=== PATIENT | female | born 1955 | race Caucasian/White ===

== ENCOUNTER 2025-03-18 15:51 | Inpatient (IN) | payer MEDICARE, SELFPAY ==
[2025-03-15] VITALS (8 sets, daily range): BP systolic 97–157; BP diastolic 49–75; BMI 37.9
--- NOTE | 2025-03-15 17:44 | ED.GENMED ---
History of Present Illness
<Ishan Magallanes PA-C - Last Filed: 03/16/25 13:06>
General
Chief Complaint: Bowel Problem
Time Seen by Provider: 03/15/25 17:21
History of Present Illness
History of Present Illness:
70-year-old female presents to the emergency department via EMS with a reported complaint of blood in her colostomy bag. She apparently had changed the bag prior to EMS arrival and the bag is empty on arrival. She is quite a challenging historian
and unable to give me any further history. She initially refused to provide information to triage however to me she states that there is blood in her ostomy. She has no idea of why she has an ostomy and is uncertain of how long it has been in
place. Apparently typically goes to [facility] however was brought to the ED here at the discretion of EMS according to the patient. She denies any fevers or vomiting. She reports diffuse abdominal pain at this time. She is not on
anticoagulants.
Review of Systems
<Ishan Magallanes PA-C - Last Filed: 03/16/25 13:06>
Review of Systems
Allergies reviewed?: Yes
All Other Systems: ROS reviewed and negative except as documented in HPI and ROS
Phy Exam
<Ishan Magallanes PA-C - Last Filed: 03/16/25 13:06>
Physical Exam
Physical Exam:
GEN: Well appearing, NAD, WDWN
HEENT: Oral mucosa moist, no scleral icterus
Cardiac: Regular rate and rhythm, no murmur
Lung: No respiratory distress, no tachypnea
Abdomen: Left-sided ostomy with deeply melanotic, liquid stool. Abdomen is generally tender to all 4 quadrants
MSK: No gross deformity or injuries
Skin: Good color, no pallor or jaundice, no rashes
Neuro: AO x3, moves all extremities freely
Psych: Calm, cooperative
Course
<Ishan Magallanes PA-C - Last Filed: 03/16/25 13:06>
Orders/Labs/Results
Orders:
Orders
03/15/25 Breakfast
Clear Liquid
At Your Request: Limited, Break Off Worker Required
Does patient need a safe tray?: No
03/15/25 17:43
Pantoprazole [Protonix IV] 80 mg IV NOW STA
03/15/25 17:45
Pantoprazole 80 mg/100 ml Nss [Protonix] 80 mg in 100 ml IV Q10H
03/15/25 18:05
Type+Screen Urgent
Complete Blood Count/With Diff Urgent
Comprehensive Metabolic Panel Urgent
03/15/25 19:12
CT Abd/pelvis W Iv Cont Urgent
Comment:
Reason For Exam: abd pain
03/15/25 21:54
STOOL [C difficile Antigen & Toxins] Urgent
REILLY Source: Feces/Stool
Specimen Description:
Date Specimen was Collected: 03/16/25
Time Specimen was Collected: 12:56
Stool Culture Urgent
REILLY Source: Feces/Stool
Specimen Description:
Date Specimen was Collected: 03/16/25
Time Specimen was Collected: 12:56
03/15/25 21:58
Admit/Transfer Patient As Directed
Co-Sign Provider:
Level of Care: Observation services
Assign to:: Medical/Surgical
Physician / Group: Chris
Diagnosis: Colitis, GI Bleed
03/15/25 21:59
PRN Pain Medication Management As Directed
May give lesser potent ordered pain med per pt: Yes
preference::
Protocol:: Medication orders for pain may be administered in a
manner that supports deferring to patient preference
when the pt is:
- Requesting an ordered lesser potent pain medication.
Least to most potent pain medications are defined
as: acetaminophen < NSAID < tramadol < opioids
(morphine, oxycodone, hydromorphone).
- Requesting a lesser dose of the same medication IF
ORDERED.
- Requesting a less intrusive route of administration
if both routes are prescribed by the provider (PO <
IV).
03/15/25 22:04
Code Status As Directed
Resuscitation Status: Full Code
03/15/25 22:41
Acetaminophen [Tylenol] 650 mg PO Q4HPRN PRN
Ondansetron Injectable [Zofran] 4 mg IV Q6HPRN PRN
Oxycodone [Roxicodone Oral Solution] 10 mg PO Q8HPRN PRN severe pain severe pain
03/15/25 22:41
Consult Notification Routine
Specialty to Notify: Gastroenterology
GASTROINTESTINAL CONSULT Routine
Consulting Provider: Jc Kim
Was physician already notified: No
Reason for consult: Colitis, GI Bleed
Activity As Directed
Activity Level: Out of Bed-Early Mobility
With Assistance
Hemetest Stools As Directed
Comment: Notify Physician of any positive results; May Stop if Negative x 3
I&O [Intake/ Output] As Directed
Frequency: q12h
Obtain Records As Directed
Dates of Information to be Released: Most recent
Type of Information Requested: Discharge Summary
H&P
Obtain Records from: [facility]
Pneumatic Compression Sleeves As Directed
Type: Knee high
Vital Signs As Directed
Frequency: Per unit guidelines
DX Deep Vein Thrombosis Video Routine
03/15/25 23:35
H&H Routine
Lactic Acid Stat
03/16/25 04:37
Basic Metabolic Panel IN AM
Complete Blood Count/No Diff IN AM
03/16/25 08:00
Aripiprazole [Abilify] 2 mg PO DAILY
Duloxetine Delayed Release [Cymbalta Delayed Release] 60 mg PO BID
Pantoprazole [Protonix IV] 40 mg IV Q12H
Prednisone [Deltasone] 4 mg PO DAILY
Pregabalin [Lyrica] 50 mg PO BID@0800,1700
Tolterodine Extended Release [Detrol LA] 2 mg PO DAILY
03/16/25 22:00
Pregabalin [Lyrica] 100 mg PO HS
Rosuvastatin Calcium [Crestor] 20 mg PO HS
Topiramate [Topamax] 50 mg PO HS
Abnormal Lab Results
03/15/25
18:05
MCH 31.1 H pg
(27.0-31.0)
Abs Immat Gran (auto) 0.2 H 10^3/uL
(0-0.05)
Absolute Lymphs (auto) 0.6 L 10^3/uL
(1.2-3.4)
Absolute Monos (auto) 1.0 H 10^3/uL
(0.1-0.6)
Immature Gran % 3.8 H %
(0-0.5)
Lymphocytes % 10.7 L %
(20.5-51.1)
Monocytes % 17.4 H %
(1.7-9.3)
Sodium 134 L mmol/L
(135-145)
Total Protein 5.9 L g/dl
(6.3-8.2)
Albumin 3.4 L g/dl
(3.5-5.0)
03/15/25 18:05
03/15/25 18:05
Vital Signs
Initial and Last Documented VS:
Initial Vital Signs
Temp Pulse Resp BP Pulse Ox
97.8 F 76 16 97/75 98
03/15/25 15:00 03/15/25 15:00 03/15/25 15:00 03/15/25 15:00 03/15/25 15:00
Last Documented Vital Signs
Temp Pulse Resp BP Pulse Ox
98.2 F 77 17 165/65 96
03/16/25 08:00 03/16/25 08:00 03/16/25 08:00 03/16/25 08:00 03/16/25 08:00
<Oz De Dios MD - Last Filed: 03/16/25 12:45>
Orders/Labs/Results
Orders:
Orders
03/15/25 Breakfast
Clear Liquid
At Your Request: Limited, Break Off Worker Required
Does patient need a safe tray?: No
03/15/25 17:43
Pantoprazole [Protonix IV] 80 mg IV NOW STA
03/15/25 17:45
Pantoprazole 80 mg/100 ml Nss [Protonix] 80 mg in 100 ml IV Q10H
03/15/25 18:05
Type+Screen Urgent
Complete Blood Count/With Diff Urgent
Comprehensive Metabolic Panel Urgent
03/15/25 19:12
CT Abd/pelvis W Iv Cont Urgent
Comment:
Reason For Exam: abd pain
03/15/25 21:54
STOOL [C difficile Antigen & Toxins] Urgent
REILLY Source: Feces/Stool
Specimen Description:
Date Specimen was Collected: 03/16/25
Time Specimen was Collected: 12:56
Stool Culture Urgent
REILLY Source: Feces/Stool
Specimen Description:
Date Specimen was Collected: 03/16/25
Time Specimen was Collected: 12:56
03/15/25 21:58
Admit/Transfer Patient As Directed
Co-Sign Provider:
Level of Care: Observation services
Assign to:: Medical/Surgical
Physician / Group: Chris
Diagnosis: Colitis, GI Bleed
03/15/25 21:59
PRN Pain Medication Management As Directed
May give lesser potent ordered pain med per pt: Yes
preference::
Protocol:: Medication orders for pain may be administered in a
manner that supports deferring to patient preference
when the pt is:
- Requesting an ordered lesser potent pain medication.
Least to most potent pain medications are defined
as: acetaminophen < NSAID < tramadol < opioids
(morphine, oxycodone, hydromorphone).
- Requesting a lesser dose of the same medication IF
ORDERED.
- Requesting a less intrusive route of administration
if both routes are prescribed by the provider (PO <
IV).
03/15/25 22:04
Code Status As Directed
Resuscitation Status: Full Code
03/15/25 22:41
Acetaminophen [Tylenol] 650 mg PO Q4HPRN PRN
Ondansetron Injectable [Zofran] 4 mg IV Q6HPRN PRN
Oxycodone [Roxicodone Oral Solution] 10 mg PO Q8HPRN PRN severe pain severe pain
03/15/25 22:41
Consult Notification Routine
Specialty to Notify: Gastroenterology
GASTROINTESTINAL CONSULT Routine
Consulting Provider: Jc Kim
Was physician already notified: No
Reason for consult: Colitis, GI Bleed
Activity As Directed
Activity Level: Out of Bed-Early Mobility
With Assistance
Hemetest Stools As Directed
Comment: Notify Physician of any positive results; May Stop if Negative x 3
I&O [Intake/ Output] As Directed
Frequency: q12h
Obtain Records As Directed
Dates of Information to be Released: Most recent
Type of Information Requested: Discharge Summary
H&P
Obtain Records from: [facility]
Pneumatic Compression Sleeves As Directed
Type: Knee high
Vital Signs As Directed
Frequency: Per unit guidelines
DX Deep Vein Thrombosis Video Routine
03/15/25 23:35
H&H Routine
Lactic Acid Stat
03/16/25 04:37
Basic Metabolic Panel IN AM
Complete Blood Count/No Diff IN AM
03/16/25 08:00
Aripiprazole [Abilify] 2 mg PO DAILY
Duloxetine Delayed Release [Cymbalta Delayed Release] 60 mg PO BID
Pantoprazole [Protonix IV] 40 mg IV Q12H
Prednisone [Deltasone] 4 mg PO DAILY
Pregabalin [Lyrica] 50 mg PO BID@0800,1700
Tolterodine Extended Release [Detrol LA] 2 mg PO DAILY
03/16/25 22:00
Pregabalin [Lyrica] 100 mg PO HS
Rosuvastatin Calcium [Crestor] 20 mg PO HS
Topiramate [Topamax] 50 mg PO HS
Abnormal Lab Results
03/15/25
18:05
MCH 31.1 H pg
(27.0-31.0)
Abs Immat Gran (auto) 0.2 H 10^3/uL
(0-0.05)
Absolute Lymphs (auto) 0.6 L 10^3/uL
(1.2-3.4)
Absolute Monos (auto) 1.0 H 10^3/uL
(0.1-0.6)
Immature Gran % 3.8 H %
(0-0.5)
Lymphocytes % 10.7 L %
(20.5-51.1)
Monocytes % 17.4 H %
(1.7-9.3)
Sodium 134 L mmol/L
(135-145)
Total Protein 5.9 L g/dl
(6.3-8.2)
Albumin 3.4 L g/dl
(3.5-5.0)
03/15/25 18:05
03/15/25 18:05
Vital Signs
Initial and Last Documented VS:
Initial Vital Signs
Temp Pulse Resp BP Pulse Ox
97.8 F 76 16 97/75 98
03/15/25 15:00 03/15/25 15:00 03/15/25 15:00 03/15/25 15:00 03/15/25 15:00
Last Documented Vital Signs
Temp Pulse Resp BP Pulse Ox
98.2 F 77 17 165/65 96
03/16/25 08:00 03/16/25 08:00 03/16/25 08:00 03/16/25 08:00 03/16/25 08:00
<Ishan Magallanes PA-C - Last Filed: 03/16/25 13:06>
MDM/Problems Addressed
MDM/Problems Addressed:
Patient is a challenging historian and I am unable to discern any further prior health information. I did attempt to obtain records from [facility] however this request was denied as it was after hours. She has melanotic stool and will be
admitted on a PPI infusion for consideration of GI intervention as needed. She does not take NSAIDs and denies anticoagulant or alcohol use thus etiology is unclear.
<Ishan Magallanes PA-C - Last Filed: 03/16/25 13:06>
*Pulse Oximetry
SaO2: 93
Oxygen Mode of Delivery: Room air
Patient hypoxic: no
*Critical Care Note
Total Time (30-74mins, 75-104mins- exclusive of procedures): Not Applicable
<Oz De Dios MD - Last Filed: 03/16/25 12:45>
Update Note
Update Note:
UPDATE
I was able to speak to the patient's daughter whose name is Marcie; unfortunately patient's daughter is deaf; her contact information is as follows:
Video phone number (will call daughter through a data base design analyst automatically): [phone]
Cell phone number (text messages only, she cannot answer this phone): [phone]
Daughter says that mother came in today with abdominal pain and black stool. She says that her mother has odd affect and some waxing and waning mentation at baseline but does not have a clear diagnosis. She says that her mother sees Dr. Arreola
Suly as primary care physician. She confirms that mother had recent visit for cellulitis in the hand/leg and has been on Keflex. She says that her mother has a history of colostomy secondary to a chemotherapy complication�apparently patient had
cerebral vasculitis requiring treatment and had some sort of an issue with the colon requiring resection as a complication of this treatment. Daughter says that this was actually closer to 10 years ago rather than 19 which was the patient's report.
She also reports that her mother has a history of hypertension and chronic essentially whole body pain requiring regular oxycodone.
I was able to speak to her primary care physician directly Dr. Tubbs ([phone]) who was extremely helpful and provided the following background medical history:
PMH:
Cerebral vasculitis on chronic immunosuppressants
History of bilateral occipital CVA
History of complicated diverticulitis with abscess requiring partial colectomy with colostomy; this was later reversed but had dehiscence and ultimately she required permanent ostomy
She has a history of chronic abdominal pain related to her prior surgeries
History of spinal stenosis with chronic back pain
Current medications:
Abilify 2 mg daily
Potassium chloride 10 mEq daily
Duloxetine 60 mg twice daily
Prednisone 4 mg daily
Rosuvastatin 20 mg daily
Metoclopramide 10 mg TID as needed
Pantoprazole 40 mg daily
Ferrous sulfate
Lyrica 50 mg in AM, 100 mg nightly
Oxycodone 10 mg TID as needed
Allergies:
Bactrim
Morphine
Physicians:
Rheumatology: Дмитрий Mcghee DO
Neurology: Torey Perez MD
Pain management: Sami Bautista MD
Neurosurgery: Lit Juarez MD (set for upcoming consult, has not seen)
She apparently had blood work in October which showed the following pertinent values:
Hemoglobin 14.2
Creatinine 0.92
Rest of basic blood work reportedly normal at the time
Social history:
Patient apparently lives at home alone currently she apparently lost her last year
She has 2 children who unfortunately both are deaf congenitally
ED Attending Note
<Ishan Magallanes PA-C - Last Filed: 03/16/25 13:06>
-
Portions of this chart may have been created with voice recognition software.� Occasional wrong word or��sound alike� substitutions may have occurred due to the inherent limitations of voice recognition software.
<Oz De Dios MD - Last Filed: 03/16/25 12:45>
ED Attending Note
Patient seen and examined by attending physician: Yes
ED Attending Note:
I have seen and evaluated the patient with a [id number] encounter. I have spoken to the advance practicer provider and involved in the medical history, the physical exam, medical decision making.
Evaluation and management service: agree unless noted differently below.
Results interpretation: agree unless noted differently below.
Focused HPI: 70-year-old female who is a very poor historian with an unclear chronic medical history that she had very least has an ostomy bag�appears to be a colostomy based on location�but she says she has had for 19 years although she cannot tell
me why she has this ('I cannot remember'). It sounds like she typically gets her care at [facility], no records here available. She says she is here in the emergency room because she noticed blood in her ostomy bag (she says dark black) and has
been having abdominal pain. It sounds like symptoms started today and have been constant all day. She notes that she has been on Keflex for the past 2 days after recent diagnosis of cellulitis in the right leg in urgent care and subsequent
follow-up with her primary doctor on Thursday. Aside from abdominal pain and dark stool in her ostomy she denies any vomiting, denies any fever. She denies other acute complaints.
Physical exam: Awake and alert. Soft blood pressure initially in triage improved by my assessment. Heart rate 70s to 80s. No hypoxia or tachypnea, afebrile here. She has a soft abdomen diffusely tender to palpation, palpable ventral wall hernia.
She has ostomy in the left lower abdomen with bag in place, black stool noted in the bag consistent with melanotic stool. Heme testing positive. Surrounding the ostomy bag patient has a large amount of tape plastered across her abdomen she says
in an attempt to curb leaking. She does have a minor wound on the anterior right jang with some slight erythema surrounding.
Medical Decision Makin-year-old female presents with abdominal pain and black stool that started today in the setting of recent Keflex for apparent right leg cellulitis. She is a very poor historian and tells me that she forgets anything about
her medical history. She believes that she has a colostomy that was done 19 years ago but she cannot remember where or why this was done. It sounds like she has been to [facility] in the past. Record request placed but no records available
thus far. Regarding her black stool�certainly stool in the ostomy appears melanotic and it was heme positive. She fortunately has a stable hemoglobin here but would treat with Keflex and monitor bleeding and trend hemoglobin. Regarding her
abdominal pain although she does not appear to be uncomfortable we will check CT abdomen as she is a very stoic and poor historian and has significant tenderness to the touch. Will need to remove all of the extra tape from the abdomen and perform
ostomy care. Plan for admission pending initial ER treatment.
Discharge Plan
Departure
Patient Disposition: Admit
Date of Disposition: 03/15/25
Time of Disposition: 21:31
Admit to doctor: Chris
Presentation/result/management discussed w/ accepting MD/DO: Hospitalist
Discharge Problem:
Melena, Abdominal pain
Interventions
Interventions:
*General Assessment Last Done: 03/15/25 16:47
*Neglect/Abuse Screening Last Done: 03/15/25 15:00
*ED COVID-19 Vaccine History Last Done: 03/15/25 22:49
*ED Influenza Vaccine History Last Done: 03/15/25 16:46
[facility] Fall Risk Assessment Tool Last Done: 03/15/25 14:57
*Risk Screen - Suicide (C-SSRS) Last Done: 03/15/25 15:00
BP-Czzrzd-Cxmndlysws Assessment Last Done: 03/15/25 16:57
[2025-03-15 18:21] LABS: Hematocrit 44.4 % (37.0-47.0); Hemoglobin 15.0 g/dL (12.0-16.0); Mean Corp Hgb Conc. 33.8 g/dL (33.0-37.0); Mean Corpuscular Volume 91.9 fL (81.0-99.0); Nucleated Red Blood Cells % 0 %; Platelet Count 158 10^3/uL (130-400); Red Cell Dist. Width 13.6 % (11.5-14.5)
[2025-03-15 18:33] LABS: ALT (SGPT) 18 U/L (0-35); AST (SGOT) 22 U/L (14-36); Albumin 3.4 g/dl (3.5-5.0); Alkaline Phosphatase 71 U/L (38-126); Blood Urea Nitrogen 11 mg/dl (7-17); Calcium 8.7 mg/dl (8.4-10.2); Carbon Dioxide 24 mmol/L (22-30); Chloride 103 mmol/L (98-107); Estimated Creatinine Clearance 63 ml/min; Glucose 92 mg/dl (70-99); Potassium 4.0 mmol/L (3.5-5.1); Sodium 134 mmol/L (135-145); Total Protein 5.9 g/dl (6.3-8.2); eGFR > 60.00
[2025-03-15] MEDS: PROTONIX IV 80 MG IV (19:27)
[2025-03-15] MEDS: PROTONIX 100 IV (19:34)
--- NOTE | 2025-03-15 22:10 | HPS.HSE ---
Addendum entered and electronically signed by Sohan Perez DO 03/15/25 23:01:
Patient seen and examined independently. Agree with findings and plan as set forth by Hina Newsome PA-C.
Patient is a 70y F with PMH significant for cerebral vasculitis on chronic prednisone, bilateral occipital CVAs and complicated diverticulitis s/p resection and colostomy who presents to ED complaining of left-sided abdominal pain and dark stool.
Patient states that her stool is usually liquid - but is more dark x several days. She denies any fevers / chills, N/V, urinary complaints, etc. Poor PO intake / appetite.
Patient typically receives her care from [facility] and has no prior visits here.
Patient was recently started on cephalexin for R hand cellulitis.
Ass:
Colitis
Colostomy Status
Cerebral Vasculitis
Chronic Pain Syndrome
Chronic Opioid Dependence
ASCVD / History of Cerebellar Strokes
Plan:
Admit for further evaluation and treatment.
CT scan in the ED suggests colitis near the ostomy site.
Check serum lactate.
Check stool studies.
Observe off of abx for now pending fever or additional culture results, etc.
? heme positive stool in the ED. GI consulted for further evaluation.
Continue usual home med regimen including chronic prednisone.
Obtain prior records from [facility] for additional history.
Original Note:
Family Physician
-
Family Physician: INTERVIEWE UNKNOWN - PT NOT
Chief Complaint
-
Abdominal Pain and Black Stools
History of Present Illness
Patient is a 70 y/o female past medical history of cerebral vasculitis on chronic prednisone, bilateral occipital CVA, complicated diverticulitis with abscess requiring diverting colostomy, chronic abdominal pain and spinal stenosis who presents
with abdominal pain. Patient reports her stools from the ostomy are chronically on the more liquids side, but since yesterday output form the ostomy is more black in color. Patient is also complaining about increased left sided abdominal pain. She
denies any fevers, sweats or chills. She denies any nausea or vomiting. She was recently started on cephalexin for right hand cellulitis.
Medical History
Past Medical History
Past Medical History: Reports None
Additional Past Medical History:
Cerebral Vasculitis
Bilateral Occipital CVA
Complicated Diverticulitis with Diverting Colostomy
Chronic Abdominal Pain
Spinal Stenosis
Hyperlipidemia
Past Surgical History: Reports Other
Additional Past Surgical History:
Partial Colectomy with colostomy, initially reversed then developed dehiscence requiring permanent colostomy
Social History
Tobacco: Other (Former cigarette smoker, currently vaping)
Family History
Family History: Not pertinent
Allergies / Home Medications
Allergies reflects when Allergies were last updated in [facility].
Home Medications with original date entered in [facility]
Allergy/Medication List:
Allergies
Allergy/AdvReac Type Severity Reaction Status Date / Time
Sulfa (Sulfonamide Allergy Rash Verified 03/15/25 14:59
Antibiotics)
Home Medications
aripiprazole 2 mg tablet (Abilify) 2 mg PO DAILY Mental Health/Anxiety 03/15/25
cephalexin 500 mg capsule 500 mg PO Q8H 03/15/25
duloxetine 60 mg capsule,delayed release 60 mg PO BID 03/15/25
oxycodone 5 mg/5 mL oral solution 10 mg PO Q8HPRN PRN severe pains 03/15/25
pantoprazole 40 mg tablet,delayed release (Protonix) 40 mg PO DAILY Gastrointestinal Issue 03/15/25
prednisone 1 mg tablet 4 mg PO DAILY Anti-Inflammatory 03/15/25
pregabalin 50 mg capsule (Lyrica) 50 mg PO BID@0800,1700 Anti-Inflammatory 03/15/25
pregabalin 50 mg capsule (Lyrica) 100 mg PO HS Anti-Inflammatory 03/15/25
rosuvastatin 20 mg tablet (Crestor) 20 mg PO HS High Cholesterol 03/15/25
solifenacin 5 mg tablet (Vesicare) 5 mg PO DAILY Urinary Issue 03/15/25
topiramate 50 mg tablet 50 mg PO HS 03/15/25
Review of Systems
-
History Source: Patient
A 12 point ROS was completed and negative except as noted: Yes
Constitutional: Denies Fever or Chills
Respiratory: Denies Cough or Trouble Breathing
Abdomen/GI: Reports See HPI
Physical Exam
Vital Signs
Vital Signs
Temp Pulse Resp BP Pulse Ox
98.6 F 84 16 131/75 93
03/15/25 16:46 03/15/25 21:45 03/15/25 21:45 03/15/25 21:00 03/15/25 17:44
Physical Exam
General: No Apparent Distress and Obese
HEENT: Anicteric and Moist mucous membranes
Respiratory: Clear and Non Labored Respirations
Cardiac: S1/S2 and Regular Rhythm
GI: Soft, Tender (Left sided without rebound or guarding), Ostomy (dark brown /almost black liquid present in ostomy bag) and Other (Significant scarring across the abdomen from prior surgeries)
Rectal: Deferred by Provider
Musculoskeletal: No Clubbing and No Cyanosis
Skin: Warm and Dry
Neuro: Other (Opens eyes on occasions, Answers simple questions but unable to particupate in full neurologic evaluation)
Psych: Calm
Laboratory Results
-
03/15/25 18:05
03/15/25 18:05
Laboratory Results
Total Bilirubin 0.5 mg/dl (0.2-1.3) 03/15/25 18:05
AST 22 U/L (14-36) 03/15/25 18:05
ALT 18 U/L (0-35) 03/15/25 18:05
Alkaline Phosphatase 71 U/L (38-126) 03/15/25 18:05
Abd/Pelvis CT:
Extensive postoperative changes within the abdomen with a colostomy in the lower midline abdomen. The residual distal colon appears to demonstrate mild wall thickening and mucosal hyperenhancement suggestive of colitis. There is no evidence of
obstruction.
Data Reviewed
-
CT Scan: Report Reviewed by me
Lab Data: Labs Reviewed by me
Old Records: Requested
Impression/Plan
-
Colitis, unclear if infectious vs ischemic
-Check lactic acid
-Check stool cultures, and stool for C diff as patient was recently on antibiotics
-Hold on antibiotics for now
-Allow clear liquids
Black-Colored Stool, possible GI Bleed
-Consult GI
-Continue Protonix IV BID
-Trend serial Hgb
Cerebral Vasculitis
-Continue prednisone
Chronic Pain Syndrome with Opioid Dependence due to chronic abdominal pain following multiple surgeries and spinal stenosis
-Continue duloxetine and pregabalin
-Continue oxycodone PRN
Hyperlipidemia
-Continue Crestor
DVT proph: SCDs
Code Status: Full Code
[2025-03-15 23:44] LABS: Hematocrit 46.2 % (37.0-47.0); Hemoglobin 15.0 g/dL (12.0-16.0)
[2025-03-16] MEDS: PROTONIX 100 IV (03:51)
[2025-03-16 05:23] LABS: Blood Urea Nitrogen 10 mg/dl (7-17); Calcium 8.7 mg/dl (8.4-10.2); Carbon Dioxide 22 mmol/L (22-30); Chloride 105 mmol/L (98-107); Estimated Creatinine Clearance 71 ml/min; Glucose 86 mg/dl (70-99); Potassium 3.4 mmol/L (3.5-5.1); Sodium 136 mmol/L (135-145); eGFR > 60.00
[2025-03-16 05:37] LABS: Hematocrit 46.5 % (37.0-47.0); Hemoglobin 15.6 g/dL (12.0-16.0); Mean Corp Hgb Conc. 33.5 g/dL (33.0-37.0); Mean Corpuscular Volume 92.8 fL (81.0-99.0); Platelet Count 157 10^3/uL (130-400); Red Cell Dist. Width 13.7 % (11.5-14.5)
[2025-03-16 06:54] VITALS: BP 142/73
[2025-03-16 08:00] VITALS: BP 165/65
--- NOTE | 2025-03-16 08:10 | CON.GI ---
Addendum entered and electronically signed by Jc Kim MD 03/16/25 15:28:
I saw and evaluated the patient. I reviewed the resident�s note and agree with findings and plan as documented in the resident�s note.
70yo female hx cerebral vasculitis, CVA, complicated diverticulitis/abscess treated initallly with diverting colostomy followed by reversal comlicated by dehiscence requiring permanent colostomy years ago. Presents with abd pain and black stools
via ostomy. Sx began last several days with abd pain around colostomy site. Stools have been looser and yesterday noted to be black. Recently treated for cellulitis with cephalexin. On chronic steroids for her vasculitis. CT shows mild wall
thickening and mucosal hyperenhancement in distal residual colon. C diff Ag positive, toxin negative. Influenza positive
REC:
Start PO vanco to treat C diff Ag positive even though toxin negative since she presents with loose stools, pain and colitis on CT
Monitor Hgb. Has been stable in 15 range. Melena could be due to colitis, but she is at risk for PUD given chronic steroids.
If signs of UGIB consider EGD
Protonix BID
Original Note:
Consultation
-
Date/Time Consultation Requested: 03/15/2025, 22:21 PM
Date/Time Consultation Performed: 03/16/2025, 8:14 AM.
Requesting Provider: Hina Newsome PA-C
Performing Provider: Kita Basilio MD for Jc Kim MD
Reason for Consultation: colitis, GI bleed
Medical History
Chief Complaint / HPI
Chief Complaint: Abdominal pain and GI bleed.
History of Present Illness:
70-year-old female with PMHx significant for bilateral occipital CVA, cerebral vasculitis on chronic prednisone, complicated diverticulitis with abscess requiring diverting colostomy about 8 years ago, s/p colostomy reversal resulting in wound
dehiscence requiring permanent colostomy, and chronic abdominal pain along with lumbar spinal stenosis and hyperlipidemia presents to the ER for evaluation of acute on chronic abdominal pain and black-colored stools. Patient states her abdominal
pain started yesterday in the noon, it is in the center of her abdomen around her colostomy, jabbing pain about 8/10 in intensity and nonradiating with some associated nausea but no emesis. Over the last 2 months she has been noticing that her
colostomy output has been loose, but since yesterday she started having black-colored watery stools ([place] stool scale 7). She is not on blood thinners at home baseline, takes pantoprazole for prophylaxis with prednisone, and did not miss a dose.
She denies fever, chills, diarrhea, constipation, reflux, bloating, belching, and dizziness.
She reports to be using NSAIDs [id number], and recently finished cephalexin about 10 days prior to this hospitalization for right arm cellulitis that has resolved.
Patient does not recall the name of her judicial law clerk, colorectal surgeon, and PCP(last name of her PCP is Clive, but she is unsure of the first name or with the practice is located).
Past Medical History
Past Medical History: Other (Bilateral occipital CVA, complicated diverticulitis with diverting colostomy, cerebral vasculitis, chronic abdominal pain, spinal stenosis, hyperlipidemia.)
Past Surgical History: Other (Partial colectomy with colostomy, reversal, recurrent dehiscence requiring permanent colostomy.)
Social History
Tobacco: Other (Patient is a former smoker, 36-lyor-hetb smoking history, currently vaping e- JUUL)
Alcohol: None
Drug: None
Personal: Single
Living: Alone
Family History
Family History: Reviewed & Not Pertinent
Allergies / Home Medications
Allergy/AdvReac Type Severity Reaction Status Date / Time
Sulfa (Sulfonamide Allergy Rash Verified 03/15/25 14:59
Antibiotics)
�Medication �Instructions �Recorded
aripiprazole 2 mg tablet (Abilify) 2 mg PO DAILY Mental Health/Anxiety 03/15/25
cephalexin 500 mg capsule 500 mg PO Q8H 03/15/25
duloxetine 60 mg capsule,delayed 60 mg PO BID 03/15/25
release
oxycodone 5 mg/5 mL oral solution 10 mg PO Q8HPRN PRN severe pains 03/15/25
pantoprazole 40 mg tablet,delayed 40 mg PO DAILY Gastrointestinal 03/15/25
release (Protonix) Issue
prednisone 1 mg tablet 4 mg PO DAILY Anti-Inflammatory 03/15/25
pregabalin 50 mg capsule (Lyrica) 50 mg PO BID@0800,1700 03/15/25
Anti-Inflammatory
pregabalin 50 mg capsule (Lyrica) 100 mg PO HS Anti-Inflammatory 03/15/25
rosuvastatin 20 mg tablet (Crestor) 20 mg PO HS High Cholesterol 03/15/25
solifenacin 5 mg tablet (Vesicare) 5 mg PO DAILY Urinary Issue 03/15/25
topiramate 50 mg tablet 50 mg PO HS 03/15/25
Review of Systems
-
History Source: Patient
Constitutional: Denies Fever, Fatigue, Night Sweats or Chills
EENT: Reports No Symptoms
Respiratory: Reports No Symptoms
Cardiac: Reports No Symptoms
Abdomen/GI: Reports Abdominal Pain, Diarrhea and Black Stools; Denies Constipated, Bloody Stools, Anorexia, Pain or Other
: Reports No Symptoms
Musculoskeletal: Reports No Symptoms
Skin: Reports No Symptoms
Neurological: Reports No Symptoms
Endocrine: Reports No Symptoms
Hematologic/Lymphatic: Reports No Symptoms
Vital Signs
Temp Pulse Resp BP Pulse Ox
99.2 F 83 22 157/73 93
03/16/25 03:15 03/15/25 23:53 03/15/25 23:53 03/15/25 23:53 03/15/25 17:44
Physical Exam
Exam
General: Other (Obese body habitus, Sedated and somnolent)
Respiratory: Clear; Negative Wheezes, Rales or Rhonchi
Cardiac: S1/S2 and Regular Rhythm; Negative Murmur, Rub or JVD
GI: Soft, Non Tender, Normal Bowel Sounds and Other (Pannus interfering with physical exam, on inspection the skin surfaces erythematous with few ecchymosis, well-healed nondraining scars from previous surgery, colostomy output-black, [place] stool
scale 7.)
Rectal: Brown
Musculoskeletal: No Clubbing, No Cyanosis and No Edema
Neuro: Sedated and Nonfocal/Grossly Intact
Psych: Calm
Results
WBC 5.0 10^3/uL (4.8-10.8) 03/16/25 04:37
Hgb 15.6 g/dL (12.0-16.0) 03/16/25 04:37
Hct 46.5 % (37.0-47.0) 03/16/25 04:37
MCV 92.8 fL (81.0-99.0) 03/16/25 04:37
Plt Count 157 10^3/uL (130-400) 03/16/25 04:37
Absolute Neuts (auto) 3.7 10^3/uL (1.4-6.5) 03/15/25 18:05
Sodium 136 mmol/L (135-145) 03/16/25 04:37
Potassium 3.4 mmol/L (3.5-5.1) L 03/16/25 04:37
Chloride 105 mmol/L (98-107) 03/16/25 04:37
Carbon Dioxide 22 mmol/L (22-30) 03/16/25 04:37
BUN 10 mg/dl (7-17) 03/16/25 04:37
Creatinine 0.8 mg/dL (0.6-1.0) 03/16/25 04:37
Calcium 8.7 mg/dl (8.4-10.2) 03/16/25 04:37
Total Bilirubin 0.5 mg/dl (0.2-1.3) 03/15/25 18:05
AST 22 U/L (14-36) 12/17/25 18:05
ALT 18 U/L (0-35) 03/15/25 18:05
Alkaline Phosphatase 71 U/L (38-126) 03/15/25 18:05
Diagnostic Image Results:
IMPRESSION:
# Extensive postoperative changes within the abdomen with a colostomy in the lower midline abdomen. The residual distal colon appears to demonstrate mild wall thickening and mucosal hyperenhancement suggestive of colitis. # There is no evidence of
obstruction.
# Postoperative changes in the anterior abdominal wall with a hernia involving the right lateral abdominal wall containing nonobstructed bowel and stomach.
# Age-indeterminate mild anterior compression deformity of the L4 vertebral body. If there is clinical suspicion for an acute fracture evaluation with dedicated MRI may be considered.
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
# 4.6 mm nonobstructing stone in the interpole of the left kidney.
Prior GI Procedures:
No records, patient does not recall physician's name or does not have emergency contact.
EGD:
Colonoscopy:
Assessment / Plan
-
Assessment-
70-year-old female with PMHx significant for cerebral vasculitis, bilateral occipital CVA, chronic prednisone, complicated diverticulitis with abscess and colostomy, wound dehiscence resulting in permanent colostomy presents to the ER for evaluation
of abdominal pain and melanotic stools. Had CT abdomen is evidence that for colitis. GI is consulted for management of colitis and evaluation of the GI bleed.
Problem list-
# Colitis
# GI bleed
# Complicated diverticulitis with diverting colostomy
# History of wound dehiscence
# Permanent colostomy 8 years ago.
# History of obesity
# hyperlipidemia
# chronic steroid use
Plan -
Colitis - will obtain Stool cultures, and will follow up on the c.diff studies.
Continue clear liquid diet.
Zofran as needed for nausea.
stable Hb, and no elevation in BUN, will hold on upper GI endoscopy for now.
-
-
Thank you for consultation and allowing me to participate in the patient's care. Please call the loan operations manager GI physician during the after hours with any questions or concerns.
[2025-03-16] MEDS: CYMBALTA DELAYED RELEASE 60 MG PO ×2 (09:24→21:26)
[2025-03-16] MEDS: DELTASONE 4 MG PO (09:24)
[2025-03-16] MEDS: DETROL LA 2 MG PO (09:24)
[2025-03-16] MEDS: LYRICA 50 MG PO ×2 (09:24→16:21)
[2025-03-16] MEDS: ABILIFY 2 MG PO (09:39)
[2025-03-16] MEDS: KCL 270 MEQ IV (10:16)
--- NOTE | 2025-03-16 10:28 | W.PN.HOSP.TC ---
Today's Communication/Plan
-
see A/P
Assessment / Plan
Assessment / Plan
HPI: 70 y/o female past medical history of cerebral vasculitis on chronic prednisone, bilateral occipital CVA, complicated diverticulitis with abscess requiring diverting colostomy, chronic abdominal pain and spinal stenosis; who presented with
abdominal pain and dark stool.
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
Patient also complained about increased left sided abdominal pain. She was recently started on cephalexin for right hand cellulitis.
CT AP:
Extensive postoperative changes within the abdomen with a colostomy in the lower midline abdomen. The residual distal colon appears to demonstrate mild wall thickening and mucosal hyperenhancement suggestive of colitis. There is no evidence of
obstruction.
Postoperative changes in the anterior abdominal wall with a hernia involving the right lateral abdominal wall containing non-obstructed bowel and stomach.
Age-indeterminate mild anterior compression deformity of the L4 vertebral body. If there is clinical suspicion for an acute fracture evaluation with dedicated MRI may be considered.
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
4.6 mm nonobstructing stone in the interpole of the left kidney.
A/P:
# Colitis, unclear infectious vs ischemic
# Chronic colostomy
Follow stool cultures, Norovirus, C diff as patient was recently on antibiotics
Hold on antibiotics for now
Allow clear liquids, ADAT
# Black-Colored Stool, possible GI Bleed
Consulted GI
Continue Protonix IV BID
Trend serial Hgb
# Cerebral Vasculitis
Continue prednisone
# Chronic Pain Syndrome with Opioid Dependence due to chronic abdominal pain following multiple surgeries and spinal stenosis
Continue duloxetine and pregabalin
Continue oxycodone PRN
# Hyperlipidemia
Continue Crestor
DVT proph: SCDs
Code Status: Full Code
DW RN
total time 51 min
Anticipated Discharge: > 48 hours
Subjective/Interval History
-
Date of Service: March 16, 2025
Objective Data
-
Labs:
Laboratory Results
03/15/25 03/16/25
23:35 04:37
WBC 5.0
Hgb 15.0 15.6
Hct 46.2 46.5
Plt Count 157
Sodium 136
Potassium 3.4 L
Chloride 105
Carbon Dioxide 22
BUN 10
Creatinine 0.8
Glucose 86
Calcium 8.7
Vital Signs:
Vital Signs
Temp Pulse Resp BP Pulse Ox
36.8 C 77 17 165/65 96
03/16/25 08:00 03/16/25 08:00 03/16/25 08:00 03/16/25 08:00 03/16/25 08:00
Review of Systems
-
History Source: Patient
All other systems: Reviewed and negative
Physical Exam
-
General: Well Developed, Well Nourished, No Apparent Distress, Comfortable, Conversant and Obese; Negative Respiratory Distress
HEENT: Normocephalic, Atraumatic, Nose Appears Normal and Ears Appear Normal; Negative Oxygen
Respiratory: Clear to Auscultation and Non Labored Respirations; Negative Accessory Resp Muscle Use
Cardiac: Regular Rhythm and S1/S2
GI: Soft, Nontender, Nondistended and Ostomy (with dark watery outpt )
Skin: Warm and Dry
Neuro: Awake and Alert
Psych: Calm
Data Reviewed
-
CT Scan: Report Reviewed by me
Labs: Labs Reviewed by me
[2025-03-16] MEDS: NSS (PRESERVATIVE FREE) IV (10:44)
[2025-03-16] MEDS: PROTONIX IV IV (10:44)
[2025-03-16] MEDS: ROXICODONE ORAL SOLUTION 10 MG PO ×3 (11:06→21:47)
--- NOTE | 2025-03-16 11:11 | PTCARENOTE ---
Pt requested IV K be stopped as she could not tolerate the infusion, reports she can tolerate med PO. MD WELCH made aware via T.T.
[2025-03-16] MEDS: KCL 40 MEQ PO (11:57)
[2025-03-16] MEDS: TESSALON PERLES 100 MG PO (12:18)
[2025-03-16 13:29] LABS: COVID-19 Antigen Negative (Negative)
--- NOTE | 2025-03-16 14:40 | PTCARENOTE ---
Spoke with Infection Prevention. If patient's norovirus comes back negative, does not need to be on enhanced precautions. However, if emptying/managing colostomy, highly suggest wearing contact gown.
[2025-03-16 14:41] VITALS: BP 112/47
[2025-03-16 15:24] VITALS: BP 139/59
--- NOTE | 2025-03-16 15:25 | PTCARENOTE ---
Received patient from ED. Patient able to transfer from stretcher to bed. Assessment completed, documented in shift assessment. Oriented to unit/call webb system.
--- NOTE | 2025-03-16 15:35 | PTCARENOTE ---
Will maintain enhanced precautions as Dr. Kim is treating with PO Vanco (per Infection Prevention)
[2025-03-16] MEDS: FIRVANQ 125 MG PO ×2 (17:31→23:06)
[2025-03-16] MEDS: NSS (PRESERVATIVE FREE) 10 ML IV (21:23)
[2025-03-16] MEDS: DESENEX/MITRAZOL/ZEASORB 1 APPLIC TOPICAL (21:23)
[2025-03-16] MEDS: PROTONIX IV 40 MG IV (21:24)
[2025-03-16] MEDS: TOPAMAX 50 MG PO (21:25)
[2025-03-16] MEDS: CRESTOR 20 MG PO (21:26)
[2025-03-16] MEDS: LYRICA 100 MG PO (21:26)
[2025-03-16 23:07] VITALS: BP 125/62
[2025-03-17] MEDS: ROXICODONE ORAL SOLUTION 10 MG PO ×4 (03:40→21:56)
--- NOTE | 2025-03-17 05:52 | W.PN.GI.CBS2 ---
Assessment / Plan
-
Assessment-
70-year-old female with PMHx significant for cerebral vasculitis, bilateral occipital CVA, chronic prednisone, complicated diverticulitis with abscess and colostomy, wound dehiscence resulting in permanent colostomy presents to the ER for evaluation
of abdominal pain and melanotic stools. Had CT abdomen is evidence that for colitis. GI is consulted for management of colitis and evaluation of the GI bleed.
Problem list-
# Colitis
# GI bleed
# Complicated diverticulitis with diverting colostomy
# History of wound dehiscence
# Permanent colostomy 8 years ago.
# History of obesity
# hyperlipidemia
# chronic steroid use
Plan -
Colitis - will obtain Stool cultures, and will follow up on the c.diff studies.
Continue clear liquid diet.
Zofran as needed for nausea.
stable Hb, and no elevation in BUN, will hold on upper GI endoscopy for now.
Subjective
Subjective
Date of Service: March 17, 2025
- Remains afebrile
Objective
Data Reviewed
Laboratory Data:
Laboratory Results
Total Bilirubin 0.5 mg/dl (0.2-1.3) 03/15/25 18:05
AST 22 U/L (14-36) 03/15/25 18:05
ALT 18 U/L (0-35) 03/15/25 18:05
Alkaline Phosphatase 71 U/L (38-126) 03/15/25 18:05
Vital Signs and I&O:
Vital Signs
Temp Pulse Resp BP Pulse Ox
98.5 F 84 18 125/62 95
03/16/25 23:07 03/16/25 23:07 03/16/25 23:07 03/16/25 23:07 03/17/25 00:10
I&O
03/15/25 03/16/25 03/17/25
06:59 06:59 06:59
Intake Total 430 / 430
Output Total 1250 / 1250
Balance -820 / -820
[2025-03-17] MEDS: FIRVANQ 125 MG PO ×4 (06:20→23:11)
[2025-03-17 07:19] VITALS: BP 156/68
[2025-03-17] MEDS: DETROL LA 2 MG PO (08:35)
[2025-03-17] MEDS: NSS (PRESERVATIVE FREE) 10 ML IV ×2 (08:35→21:03)
[2025-03-17] MEDS: ABILIFY 2 MG PO (08:35)
[2025-03-17] MEDS: CYMBALTA DELAYED RELEASE 60 MG PO ×2 (08:35→21:02)
[2025-03-17] MEDS: LYRICA 50 MG PO ×2 (08:35→17:22)
[2025-03-17] MEDS: DESENEX/MITRAZOL/ZEASORB 1 APPLIC TOPICAL ×2 (08:36→21:02)
[2025-03-17] MEDS: PROTONIX IV 40 MG IV ×2 (08:36→21:03)
[2025-03-17] MEDS: DELTASONE 4 MG PO (08:40)
[2025-03-17 08:44] LABS: Hematocrit 44.6 % (37.0-47.0); Hemoglobin 15.1 g/dL (12.0-16.0); Mean Corp Hgb Conc. 33.9 g/dL (33.0-37.0); Mean Corpuscular Volume 93.1 fL (81.0-99.0); Platelet Count 151 10^3/uL (130-400); Red Cell Dist. Width 13.7 % (11.5-14.5)
--- NOTE | 2025-03-17 09:23 | WOUNDNOTE ---
ABDOMEN (with photo flash)
[2025-03-17 09:25] LABS: Blood Urea Nitrogen 11 mg/dl (7-17); Calcium 8.3 mg/dl (8.4-10.2); Carbon Dioxide 20 mmol/L (22-30); Chloride 106 mmol/L (98-107); Estimated Creatinine Clearance 71 ml/min; Glucose 83 mg/dl (70-99); Magnesium 1.9 mg/dl (1.6-2.3); Potassium 3.5 mmol/L (3.5-5.1); Sodium 136 mmol/L (135-145); eGFR > 60.00
--- NOTE | 2025-03-17 09:27 | WOUNDNOTE ---
R HIP/ABDOMINAL FOLD
--- NOTE | 2025-03-17 10:10 | WOUNDNOTE ---
[facility] RN note: Patient seen around 929. Patient admitted with colitis, GIB. Patient lives alone.
See H&P for complete history.
PMH: cerebral vasculitis (prednisone), CVA's, colostomy for diverticulitis many years ago, recent hand cellulitis, chronic pain, opioid dependence, spinal stenosis, obesity.
Wound Location and type/assessment: Patient admitted with: Discolored dull red skin around ostomy suspect from yeasty and moisture. Stoma with granulomas that can bleed during cleaning patient stated. Patient states bleeding stops with pressure. No
active bleeding currently. Abdominal/groin yeasty rash along with MASD. Feet/toes with red rash-like skin suspect fungal rash. Skin on heels red/dry suspect from fungal rash. R perianal skin with small cluster of pustules suspect herpetic rash. No
drainage noted. L elbow dry scabbed abrasion.
Appetite: on clear liquid diet currently.
Pressure redistribution devices in place: [employer] Air bed. Patient cant turn self in bed.
Plan: Colostomy appliance changed using Center wafer # [id number], Hans seal and Roxi pouch #[id number] after applying miconazole powder and no sting barrier wipe to skin around stoma. Extra ostomy supply left in room. Patient stated her daughter
plans to bring in her ostomy supplies. Patient does her own ostomy care at home. Miconazole powder applied to R abdominal fold and tucked non woven gauze pad R abdominal skin fold. Patient pulled up in bed with help from PEDRO Tomlin. Heels off bed
with pillow.
Updated Dr. Medel re: R perianal small pustular rash; defer to hospitalist if an antiviral indicated. Dr. Medel approved local skin care including Nizoral cream to feet/toes. t/c SPD and ordered a bariatric air chair cushion. PEDRO Tomlin gave bariatric
cushion to patient along with samples of Center 4 inch 2 piece pouch if patient wants to try with next appliance change. Nursing can assist patient with any future routine pouch changes.
Updated care plan, will sign off. Call with concerns.
Note to case management requested for discharge: VN if goes home.
--- NOTE | 2025-03-17 11:34 | CM ---
CM reviewed chart, patient seen bedside.
Patient Flu +
Patient resides at [facility]- reports exactly one year.
Patient ambulatory with a RW- reports she gets therapy from Rony HERNANDEZ, agreeable to referral to [facility] for VN/ home health aide, aware they are not daily visits, reports she cannot private pay for daily caregivers- placed in [employer].
PCP Dr. Maxwell Tubbs, [facility], confirms prescription coverage.
[facility] form verbally reviewed, provided with copy, placed in chart.
CM will continue to follow for all d.c needs.
Plan; home with Rony HERNANDEZ, [facility] VN
--- NOTE | 2025-03-17 12:30 | W.PN.HOSP.TC ---
Today's Communication/Plan
-
see A/P
Assessment / Plan
Assessment / Plan
HPI: 70 y/o female past medical history of cerebral vasculitis on chronic prednisone, bilateral occipital CVA, complicated diverticulitis with abscess requiring diverting colostomy, chronic abdominal pain and spinal stenosis; who presented with
abdominal pain and dark stool.
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
Patient also complained about increased left sided abdominal pain. She was recently started on cephalexin for right hand cellulitis.
CT AP:
Extensive postoperative changes within the abdomen with a colostomy in the lower midline abdomen. The residual distal colon appears to demonstrate mild wall thickening and mucosal hyperenhancement suggestive of colitis. There is no evidence of
obstruction.
Postoperative changes in the anterior abdominal wall with a hernia involving the right lateral abdominal wall containing non-obstructed bowel and stomach.
Age-indeterminate mild anterior compression deformity of the L4 vertebral body. If there is clinical suspicion for an acute fracture evaluation with dedicated MRI may be considered.
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
4.6 mm nonobstructing stone in the interpole of the left kidney.
A/P:
# GI symptoms with colitis noted on imaging,
# Chronic colostomy
Norovirus negative,
C. difficile antigen positive, toxin negative (noted patient was recently on antibiotics)
Follow stool cultures
Started PO vanco
Colostomy outpt appears to be decreasing, cont to monitor
Advance clear liquid diet to regular
Continue Protonix IV BID for now
Appreciate GI input
PT eval
# Resp symptoms with mild cough and congestion 2/2 flu
Start Tamiflu x5 days
# Cerebral Vasculitis
Continue prednisone
# Chronic Pain Syndrome with Opioid Dependence due to chronic abdominal pain following multiple surgeries and spinal stenosis
Continue duloxetine and pregabalin
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
# Hyperlipidemia
Continue Crestor
DVT proph: SCDs
Code Status: Full Code
DW RN
updated daughter on the phone (appears daughter is deaf and she has an bilingual interpreter translating/signing for her)
total time 51 min
Anticipated Discharge: Within 24 hours
Subjective/Interval History
-
Date of Service: March 17, 2025
Objective Data
-
Labs:
Laboratory Results
03/17/25
08:11
WBC 5.5
Hgb 15.1
Hct 44.6
Plt Count 151
Sodium 136
Potassium 3.5
Chloride 106
Carbon Dioxide 20 L
BUN 11
Creatinine 0.8
Glucose 83
Calcium 8.3 L
Vital Signs:
Vital Signs
Temp Pulse Resp BP Pulse Ox
37.2 C 85 16 156/68 95
03/17/25 07:19 03/17/25 07:19 03/17/25 07:19 03/17/25 07:19 03/17/25 07:19
I&O
03/16/25 03/17/25 03/18/25
06:59 06:59 06:59
Intake Total 430 / 430
Output Total 1250 / 1250
Balance -820 / -820
[2025-03-17] MEDS: TAMIFLU 75 MG PO ×2 (13:03→21:03)
[2025-03-17] MEDS: KCL 40 MEQ PO (13:04)
--- NOTE | 2025-03-17 14:21 | PTCARENOTE ---
pt tearful, overwhelmed with the care that she needs. reported her daughter called her and said she could possibly be d/c'd tomorrow, pt overwhelmed with this concept. This nurse reached out to attending, daughter had apparently asked attending for
psych consult as well. N/o entered. pt denies SI.
--- NOTE | 2025-03-17 14:45 | W.PN.GI.CBS2 ---
Today's Communication / Plan
-
Continue oral vancomycin, discontinue IV pantoprazole and switch back to oral pantoprazole. Agree with regular diet
GI signing off, recommend outpatient follow-up.
Assessment / Plan
-
Assessment-
70-year-old female with PMHx significant for cerebral vasculitis, bilateral occipital CVA, chronic prednisone, complicated diverticulitis with abscess and colostomy, wound dehiscence resulting in permanent colostomy presents to the ER for evaluation
of abdominal pain and melanotic stools. Had CT abdomen is evidence that for colitis. GI is consulted for management of colitis and evaluation of the GI bleed.
Problem list-
# Colitis
# GI bleed
# Complicated diverticulitis with diverting colostomy
# History of wound dehiscence
# Permanent colostomy 8 years ago.
# History of obesity
# hyperlipidemia
# chronic steroid use
Plan -
continue oral vancomycin for c.diff antigen positive stools.
Hb has been stable, melena subsided. stop pantoprazole IV BID.
agree with regular diet.
Recommend outpatient follow up, call GI with any questions, GI signing off.
Subjective
Subjective
Date of Service: March 17, 2025
Patient reports her abdominal pain to be back at baseline, chronic, and intermittent headaches. She is extremely tearful, states she is depressed and she would be better off . She denied any active suicidal ideation or active plan for
execution.
Objective
Data Reviewed
Laboratory Data:
Laboratory Results
03/17/25 08:11
03/17/25 08:11
Laboratory Results
Magnesium 1.9 mg/dl (1.6-2.3) 03/17/25 08:11
Total Bilirubin 0.5 mg/dl (0.2-1.3) 03/15/25 18:05
AST 22 U/L (14-36) 03/15/25 18:05
ALT 18 U/L (0-35) 03/15/25 18:05
Alkaline Phosphatase 71 U/L (38-126) 03/15/25 18:05
Vital Signs and I&O:
Vital Signs
Temp Pulse Resp BP Pulse Ox
99.0 F 85 16 156/68 95
03/17/25 07:19 03/17/25 07:19 03/17/25 07:19 03/17/25 07:19 03/17/25 07:19
I&O
03/16/25 03/17/25 03/18/25
06:59 06:59 06:59
Intake Total 430 / 430
Output Total 1250 / 1250
Balance -820 / -820
Physical Exam
Physical Exam
HEENT: Anicteric
Cardiology: Normal Sinus Rhythm, S1 and S2
Pulmonary: Clear, Wheezes, Rales and Rhonchi
GI: Soft, Non Distended, Non Tender, Normal Bowel Sounds and Other (Pannus interfering with physical exam, on inspection the skin surfaces erythematous with few ecchymosis, well-healed nondraining scars from previous surgery, colostomy output-
brown.)
Extremities: No Edema
[2025-03-17 15:00] VITALS: BP 138/55
--- NOTE | 2025-03-17 17:13 | CON.MD ---
Consultation - Medical
-
patient seen chart reviewed. discussed with nursing. consult done today mar 17 2025 patient is a 70 year old woman with seroius medical illness who comes to w c.o l abd pain and black stools. she has a permanent colostomy secondary to
complications of diverticulosis. she was found to have c diff infection. she said physically she is better today. she has hx of depression for which she is prescribed abilify 2 mg q day cymbalta 60 mg bid. she also takes topamax and lyrica but
says these are prescribed for pain. see med hx below. next week is the four year anniv of her h's and she began to sob. she has two d whom she describes as selfish and not very supportive. she lives in assisted living and is slowly making
some friends 'they are all older than me' and she mentions how many friends she has lost to . she has some thoughts of dying herself...would she be better off but has not made a suicide attempt and would not. sleep not great given pain.
appetite fair but dec w acute illness. nothing to suggest psychosis or bipolar. she can enjoy some things...eg grandkids but does not see them enough
past psych hx see above recent rx for depression by pcp. no hx psych hosp.
medical hx see above patient w cerebral vasculitis, cva bilaterally which has affected vision. sprinal stenosis w bhronic pain abd wall hernia myelolipoma adrenal gland r kidney stone hld gerd bp 138/55 afeb
family hx non contributory
substance abuse denied
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 enjoys
[employer]. has a few friends in assisted living including a gentleman caller
mse alert ox3 cooperative mood is depressed affect congruent no si aver intell insight judgment okay no psychosis speech and thought process goal oriented
dx unspecified depression complicated bereavement chronic pain
recommendations patient is quite depressed and needs a lot of support. changing her meds today would not really provide any relief in the near future. would suggest consideration might be given to adding wellbutrin as an out patient. i do think
supportive psychotherapy could help. gave her the number of [facility] and also she could call her insurance company [employer] for recommendations. would check tsh b12 folate if not already done. 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
psych will look in on her on the weekend to offer support.
[2025-03-17] MEDS: NIZORAL 2% CREAM 1 APPLIC TOPICAL (21:02)
[2025-03-17] MEDS: TOPAMAX 50 MG PO (21:57)
[2025-03-17] MEDS: CRESTOR 20 MG PO (21:57)
[2025-03-17] MEDS: LYRICA 100 MG PO (21:58)
[2025-03-17 22:45] VITALS: BP 136/59
[2025-03-18] MEDS: FIRVANQ 125 MG PO ×4 (05:17→23:49)
[2025-03-18] MEDS: ROXICODONE ORAL SOLUTION 10 MG PO ×4 (05:17→22:24)
[2025-03-18 07:00] VITALS: BP 133/52
[2025-03-18 07:15] LABS: Hematocrit 43.9 % (37.0-47.0); Hemoglobin 14.6 g/dL (12.0-16.0); Mean Corp Hgb Conc. 33.3 g/dL (33.0-37.0); Mean Corpuscular Volume 94.6 fL (81.0-99.0); Platelet Count 160 10^3/uL (130-400); Red Cell Dist. Width 13.7 % (11.5-14.5)
--- NOTE | 2025-03-18 07:42 | W.PN.HOSP.TC ---
Today's Communication/Plan
-
Continue treating for C. diff colitis and Influenza
Patient still quite symptomatic
Assessment / Plan
Assessment / Plan
Physical Exam
General: Well Developed, Well Nourished
HEENT: Normocephalic, Atraumatic, Nose Appears Normal and Ears Appear Normal
Respiratory: Clear to Auscultation Bilaterally
Cardiac: Regular Rhythm and S1/S2
GI: Soft, Nontender, Nondistended and Ostomy
Skin: Warm and Dry
Neuro: Awake and Alert
Psych: Calm
Assessment/Plan
HPI: 70 y/o female with past medical history of cerebral vasculitis on chronic prednisone, bilateral occipital CVA, complicated diverticulitis with abscess requiring diverting colostomy, chronic abdominal pain and spinal stenosis; who presented with
abdominal pain and dark stool. Patient reported that her stools from the ostomy are chronically on the more liquids side, but since the day prior to arrival, the output form the ostomy is more black in color.
Patient also complained about increased left sided abdominal pain. She was recently started on cephalexin for right hand cellulitis.
CT AP:
Extensive postoperative changes within the abdomen with a colostomy in the lower midline abdomen. The residual distal colon appears to demonstrate mild wall thickening and mucosal hyperenhancement suggestive of colitis. There is no evidence of
obstruction.
Postoperative changes in the anterior abdominal wall with a hernia involving the right lateral abdominal wall containing non-obstructed bowel and stomach.
Age-indeterminate mild anterior compression deformity of the L4 vertebral body. If there is clinical suspicion for an acute fracture evaluation with dedicated MRI may be considered.
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
4.6 mm nonobstructing stone in the interpole of the left kidney.
# GI symptoms with colitis noted on imaging with associated abdominal pain
# Chronic colostomy
Norovirus negative
C. difficile antigen positive, toxin negative (noted patient was recently on antibiotics)
Follow stool cultures/studies: Norovirus negative, Salmonella/Shigella, Campylobacter were all negative
Continue P.O. Vancomycin -- treat for an empiric 14-day course as still suspect C Diff colitis given her presentation/recent antibiotics (although C Diff Ag +, toxin negative)
Colostomy output appears to be decreasing, continue to monitor
Advance clear liquid diet to regular
Stop PPI as no concern for gastrointestinal bleeding and PPI would increase patient's risk for recurrent C. Diff in the future.
Appreciate GI input -- no plans for EGD or colonoscopy at this time
Consider eventual colonoscopy as outpatient and advise close outpatient f/u in our office with Dr. Kim.
Physical Therapy evaluation
Low-fiber, low-residue diet
# Resp symptoms with mild cough and congestion 2/2 flu
Continue Tamiflu x5 days
# Cerebral Vasculitis
Continue prednisone
# Chronic Pain Syndrome with Opioid Dependence due to chronic abdominal pain following multiple surgeries and spinal stenosis
Continue duloxetine and pregabalin
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
# Hyperlipidemia
Continue Crestor
#Unspecified depression and complicated bereavement
-Appreciate psychiatry: patient is quite depressed and needs a lot of support; changing patient's medications right now would not really provide any relief in the near future
-Consideration for adding Wellbutrin as an outpatient
-Outpatient supportive psychotherapy
-Check TSH, Vitamin B12 and Folate levels
DVT proph: SCDs. Lovenox.
Code Status: Full Code
toy trains and accessories salesperson is daughter Marcie, phone number [phone].
Anticipated Discharge: 24 - 48 hours
Subjective/Interval History
-
Date of Service: March 18, 2025
Patient was seen and examined. She reported feeling generalized weakness and subjective fever.
Objective Data
-
Labs:
Laboratory Results
03/18/25
06:09
WBC 4.7 L
Hgb 14.6
Hct 43.9
Plt Count 160
Sodium Pending
Potassium Pending
Chloride Pending
Carbon Dioxide Pending
BUN Pending
Creatinine Pending
Glucose Pending
Calcium Pending
Vital Signs:
Vital Signs
Temp Pulse Resp BP Pulse Ox
98.3 F 91 16 136/59 94
03/17/25 22:45 03/17/25 22:45 03/17/25 22:45 03/17/25 22:45 03/17/25 23:25
I&O
03/17/25 03/18/25 03/19/25
06:59 06:59 06:59
Intake Total 430 / 430 240 / 240
Output Total 1250 / 1250 75 / 75
Balance -820 / -820 165 / 165
[2025-03-18 07:44] LABS: Blood Urea Nitrogen 13 mg/dl (7-17); Calcium 9.0 mg/dl (8.4-10.2); Carbon Dioxide 26 mmol/L (22-30); Chloride 108 mmol/L (98-107); Estimated Creatinine Clearance 63 ml/min; Glucose 109 mg/dl (70-99); Potassium 4.0 mmol/L (3.5-5.1); Sodium 138 mmol/L (135-145); eGFR > 60.00
[2025-03-18 09:36] VITALS: BP 147/68
[2025-03-18] MEDS: ABILIFY 2 MG PO (09:54)
[2025-03-18] MEDS: DELTASONE 4 MG PO (09:54)
[2025-03-18] MEDS: DETROL LA 2 MG PO (09:54)
[2025-03-18] MEDS: LYRICA 50 MG PO ×2 (09:55→18:13)
[2025-03-18] MEDS: PROTONIX IV 40 MG IV (09:55)
[2025-03-18] MEDS: TAMIFLU 75 MG PO ×2 (09:55→21:39)
[2025-03-18] MEDS: NSS (PRESERVATIVE FREE) 10 ML IV (09:55)
[2025-03-18] MEDS: CYMBALTA DELAYED RELEASE 60 MG PO ×2 (09:55→21:39)
[2025-03-18] MEDS: DESENEX/MITRAZOL/ZEASORB 1 APPLIC TOPICAL ×2 (10:00→21:39)
[2025-03-18] MEDS: NIZORAL 2% CREAM 1 APPLIC TOPICAL ×2 (10:01→21:39)
--- NOTE | 2025-03-18 10:19 | CM ---
Addendum entered by Alicja Urbina 03/19/25 09:13:
Spoke w/ patient's Daughter/POA, Marcie this morning via phone. Marcie is Deaf; and communicates via phone w/ chiropractic neurologist.
SNF options near [facility] identified; daughter's preferences are: #[facility]. [facility]; #2. [facility]; #3 [facility].
Addendum entered by Alicja Urbina 03/19/25 08:44:
Submitted SNF referrals via [facility] to facilities near [facility] zip [facility] per daughter's request
Addendum entered by Alicja Urbina 03/18/25 11:57:
Received a call from daughter, Marcie. She is agreeable to SNF; preference is a facility in [facility] zip code near her.
Attending notified to call daughterMarcie, to provide clinical update
Original Note:
PT recommends SNF; patient told therapistthat she prefers to go home w/ home PT.
Patient admitted [facility] on 03/15 @ 22:37; Attending notified
Spoke w/ patient's daughter, Radha, via phone; explained Observation status; also explained that mother does not qualify for Medicare Waiver Program to be admitted to SNF
[2025-03-18] MEDS: TYLENOL 650 MG PO (12:05)
[2025-03-18 15:00] VITALS: BP 116/64
[2025-03-18] MEDS: TOPAMAX 50 MG PO (21:34)
[2025-03-18] MEDS: CRESTOR 20 MG PO (21:39)
[2025-03-18] MEDS: LYRICA 100 MG PO (21:39)
[2025-03-18 23:11] VITALS: BP 141/64
[2025-03-19] MEDS: ROXICODONE ORAL SOLUTION 10 MG PO ×4 (02:35→17:57)
[2025-03-19] MEDS: FIRVANQ 125 MG PO ×3 (05:43→17:54)
[2025-03-19 06:55] LABS: Hematocrit 45.3 % (37.0-47.0); Hemoglobin 14.7 g/dL (12.0-16.0); Mean Corp Hgb Conc. 32.5 g/dL (33.0-37.0); Mean Corpuscular Volume 94.6 fL (81.0-99.0); Platelet Count 175 10^3/uL (130-400); Red Cell Dist. Width 13.5 % (11.5-14.5)
[2025-03-19 07:38] LABS: Blood Urea Nitrogen 13 mg/dl (7-17); Calcium 8.8 mg/dl (8.4-10.2); Carbon Dioxide 22 mmol/L (22-30); Chloride 110 mmol/L (98-107); Estimated Creatinine Clearance 63 ml/min; Glucose 132 mg/dl (70-99); Potassium 3.7 mmol/L (3.5-5.1); Sodium 139 mmol/L (135-145); eGFR > 60.00
[2025-03-19] MEDS: DELTASONE 4 MG PO (07:47)
[2025-03-19] MEDS: LYRICA 50 MG PO ×2 (07:47→17:53)
[2025-03-19] MEDS: CYMBALTA DELAYED RELEASE 60 MG PO ×2 (07:47→20:49)
[2025-03-19] MEDS: DETROL LA 2 MG PO (07:47)
[2025-03-19] MEDS: TAMIFLU 75 MG PO ×2 (07:47→20:48)
[2025-03-19] MEDS: ABILIFY 2 MG PO (07:47)
[2025-03-19] MEDS: NIZORAL 2% CREAM 1 APPLIC TOPICAL ×2 (07:48→20:50)
[2025-03-19] MEDS: DESENEX/MITRAZOL/ZEASORB 1 APPLIC TOPICAL ×2 (07:49→20:50)
[2025-03-19 08:13] VITALS: BP 125/67
[2025-03-19 08:47] LABS: Folate 10.9 ng/ml (2.76-20); Vitamin B12 > 1000 pg/ml (239-931)
--- NOTE | 2025-03-19 12:58 | W.PN.UPDATE ---
Update Note
Progress Note Update
Patient seen by me on 03/19/2025 from 12:05pm-12:25pm.
Psychiatry follow up for depression. Chart reviewed. Patient reports struggling due to limited support, chronic pain and health issues and upcoming 4 year anniversary of her 's passing. She denies active SI. She smiles when talking about her
4yo granddaughter and says she is a motivating factor for her.
MSE- good eye contact. tearful at times. goal directed. mood is depressed. affect is congruent. denies active SI. Denies HI/AVH. Fair insight/judgement. fully oriented.
A/P-unspecified depression, complicated bereavement and chronic pain. Patient remains depressed and in need of support. She states she would like individual therapy once home. Dr. Koch had provided her with number for [facility] and
was also informed to call her insurance company [employer] for outpatient treatment recommendations. Continue current psychiatric medications and consider adjustments as an outpatient.
[2025-03-19 15:00] VITALS: BP 130/56
--- NOTE | 2025-03-19 18:56 | W.PN.HOSP.TC ---
Today's Communication/Plan
-
SNF placement
IV fluids given volume loss
Monitor on telemetry
Assessment / Plan
Assessment / Plan
Physical Exam
General: Well Developed, Well Nourished
HEENT: Normocephalic, Atraumatic, Nose Appears Normal and Ears Appear Normal
Respiratory: Clear to Auscultation Bilaterally
Cardiac: Regular Rhythm and S1/S2
GI: Soft, Nontender, Nondistended and Ostomy
Skin: Warm and Dry
Neuro: Awake and Alert
Psych: Calm
Assessment/Plan
HPI: 70 y/o female with past medical history of cerebral vasculitis on chronic prednisone, bilateral occipital CVA, complicated diverticulitis with abscess requiring diverting colostomy, chronic abdominal pain and spinal stenosis; who presented with
abdominal pain and dark stool. Patient reported that her stools from the ostomy are chronically on the more liquids side, but since the day prior to arrival, the output form the ostomy is more black in color.
Patient also complained about increased left sided abdominal pain. She was recently started on cephalexin for right hand cellulitis.
CT AP:
Extensive postoperative changes within the abdomen with a colostomy in the lower midline abdomen. The residual distal colon appears to demonstrate mild wall thickening and mucosal hyperenhancement suggestive of colitis. There is no evidence of
obstruction.
Postoperative changes in the anterior abdominal wall with a hernia involving the right lateral abdominal wall containing non-obstructed bowel and stomach.
Age-indeterminate mild anterior compression deformity of the L4 vertebral body. If there is clinical suspicion for an acute fracture evaluation with dedicated MRI may be considered.
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
4.6 mm nonobstructing stone in the interpole of the left kidney.
# GI symptoms with colitis noted on imaging with associated abdominal pain
# Chronic colostomy
Norovirus negative
C. difficile antigen positive, toxin negative (noted patient was recently on antibiotics)
Follow stool cultures/studies: Norovirus negative, Salmonella/Shigella, Campylobacter were all negative
Continue P.O. Vancomycin -- treat for an empiric 14-day course as still suspect C Diff colitis given her presentation/recent antibiotics (although C Diff Ag +, toxin negative)
Monitor colostomy output
Advance clear liquid diet to low residue
Stop PPI as no concern for gastrointestinal bleeding and PPI would increase patient's risk for recurrent C. Diff in the future.
Appreciate GI input -- no plans for EGD or colonoscopy at this time
Consider eventual colonoscopy as outpatient and advise close outpatient f/u in our office with Dr. Kim.
Physical Therapy evaluation
Low-fiber, low-residue diet
IV Fluids LR 1 L, for 1 bag total to be given 03/19-03/20 given patient's mild lightheadedness, likely from volume loss
# Resp symptoms with mild cough and congestion 2/2 flu
Continue Tamiflu x5 days
# Cerebral Vasculitis
Continue prednisone
# Chronic Pain Syndrome with Opioid Dependence due to chronic abdominal pain following multiple surgeries and spinal stenosis
Continue duloxetine and pregabalin
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
# Hyperlipidemia
Continue Crestor
#Unspecified depression and complicated bereavement
-Appreciate psychiatry: patient is quite depressed and needs a lot of support; changing patient's medications right now would not really provide any relief in the near future
-Consideration for adding Wellbutrin as an outpatient
-Outpatient supportive psychotherapy
-Check TSH, Vitamin B12 and Folate levels
DVT proph: SCDs. Lovenox.
Code Status: Full Code
curtains and draperies salesperson is daughter Marcie, phone number [phone].
I spoke to patient's daughter Marcie over the phone on 03/19/25 morning, and I answered all of her questions and concerns to satisfaction.
Anticipated Discharge: 24 - 48 hours
Subjective/Interval History
-
Date of Service: March 19, 2025
Patient was seen and examined. She reported feeling like she still has diarrhea, with some subjective fever feeling.
Objective Data
-
Labs:
Laboratory Results
03/19/25
05:43
Sodium 139
Potassium 3.7
Chloride 110 H
Carbon Dioxide 22
BUN 13
Creatinine 0.9
Glucose 132 H
Calcium 8.8
Vital Signs:
Vital Signs
Temp Pulse Resp BP Pulse Ox
98.4 F 88 12 130/56 99
03/19/25 15:00 03/19/25 15:00 03/19/25 15:00 03/19/25 15:00 03/19/25 15:00
I&O
03/18/25 03/19/25 03/20/25
06:59 06:59 06:59
Intake Total 240 / 240 720 / 720
Output Total 75 / 75 500 / 500 325 / 325
Balance 165 / 165 220 / 220 -325 / -325
[2025-03-19] MEDS: LR 1000 IV (20:47)
[2025-03-19] MEDS: CRESTOR 20 MG PO (20:48)
[2025-03-19] MEDS: ZOFRAN 4 MG IV (20:55)
[2025-03-19] MEDS: LYRICA 100 MG PO (21:44)
[2025-03-19] MEDS: TOPAMAX 50 MG PO (21:44)
[2025-03-19 23:03] VITALS: BP 129/61
[2025-03-20] MEDS: FIRVANQ 125 MG PO ×5 (00:25→23:36)
[2025-03-20] MEDS: ROXICODONE ORAL SOLUTION 10 MG PO ×5 (01:20→23:39)
[2025-03-20 07:00] VITALS: BP 107/56
[2025-03-20] MEDS: DELTASONE 4 MG PO (08:40)
[2025-03-20] MEDS: TAMIFLU 75 MG PO ×2 (08:41→21:15)
[2025-03-20] MEDS: DETROL LA 2 MG PO (08:41)
[2025-03-20] MEDS: NIZORAL 2% CREAM 1 APPLIC TOPICAL ×2 (08:41→21:18)
[2025-03-20] MEDS: ABILIFY 2 MG PO (08:41)
[2025-03-20] MEDS: CYMBALTA DELAYED RELEASE 60 MG PO ×2 (08:41→21:15)
[2025-03-20] MEDS: DESENEX/MITRAZOL/ZEASORB 1 APPLIC TOPICAL ×2 (08:41→21:18)
[2025-03-20] MEDS: LYRICA 50 MG PO ×2 (08:41→16:52)
[2025-03-20 09:33] LABS: Hematocrit 44.2 % (37.0-47.0); Hemoglobin 14.3 g/dL (12.0-16.0); Mean Corp Hgb Conc. 32.4 g/dL (33.0-37.0); Mean Corpuscular Volume 94.8 fL (81.0-99.0); Platelet Count 178 10^3/uL (130-400); Red Cell Dist. Width 13.3 % (11.5-14.5)
--- NOTE | 2025-03-20 09:44 | W.PN.HOSP.TC ---
Today's Communication/Plan
-
see A/P
Assessment / Plan
Assessment / Plan
HPI: 70 y/o female with past medical history of cerebral vasculitis on chronic prednisone, bilateral occipital CVA, complicated diverticulitis with abscess requiring diverting colostomy, chronic abdominal pain and spinal stenosis; who presented with
abdominal pain and dark stool. Patient reported that her stools from the ostomy are chronically on the more liquids side, but since the day prior to arrival, the output form the ostomy is more black in color.
Patient also complained about increased left sided abdominal pain. She was recently started on cephalexin for right hand cellulitis.
CT AP:
Extensive postoperative changes within the abdomen with a colostomy in the lower midline abdomen. The residual distal colon appears to demonstrate mild wall thickening and mucosal hyperenhancement suggestive of colitis. There is no evidence of
obstruction.
Postoperative changes in the anterior abdominal wall with a hernia involving the right lateral abdominal wall containing non-obstructed bowel and stomach.
Age-indeterminate mild anterior compression deformity of the L4 vertebral body. If there is clinical suspicion for an acute fracture evaluation with dedicated MRI may be considered.
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
4.6 mm nonobstructing stone in the interpole of the left kidney.
A/P:
# GI symptoms with colitis noted on imaging with associated abdominal pain
# Chronic colostomy
Norovirus negative, stool cultures negative
C. difficile antigen positive, toxin negative (noted patient was recently on antibiotics)
Continue P.O. Vancomycin, treat for an empiric 14-day course
Monitor colostomy output
Advanced diet to low residue and pt tolerated well
Stopped PPI as no concern for gastrointestinal bleeding and PPI would increase patient's risk for recurrent C. Diff in the future.
Appreciate GI input
# Abdominal fullness, feeling impacted per pt
Pt states she usually need disimpaction by GI under anesthesia
pt declined bowel regimen
Check AXR
GI CS
# Resp symptoms with mild cough/congestion 2/2 flu
Continue Tamiflu x5 days
# Cerebral Vasculitis
Continue prednisone
# Chronic Pain Syndrome with Opioid Dependence due to chronic abdominal pain following multiple surgeries and spinal stenosis
Continue duloxetine and pregabalin
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
# Hyperlipidemia
Continue Crestor
# Unspecified depression and complicated bereavement
Appreciate psychiatry: patient is quite depressed and needs a lot of support; changing patient's medications right now would not really provide any relief in the near future
Cont current Ability and duloxetine
Outpatient supportive psychotherapy
TSH WNL at 1.29, Vitamin B12 and Folate levels WNL
DVT proph: Lovenox SQ
Code Status: Full Code
Dispo: SNF
DW RN
total time 51 min
Anticipated Discharge: 24 - 48 hours
Subjective/Interval History
-
Date of Service: March 20, 2025
Objective Data
-
Labs:
Laboratory Results
03/20/25
09:19
WBC 6.0
Hgb 14.3
Hct 44.2
Plt Count 178
Sodium Pending
Potassium Pending
Chloride Pending
Carbon Dioxide Pending
BUN Pending
Creatinine Pending
Glucose Pending
Calcium Pending
Vital Signs:
Vital Signs
Temp Pulse Resp BP Pulse Ox
36.6 C 82 16 107/56 97
03/20/25 07:00 03/20/25 07:00 03/20/25 07:00 03/20/25 07:00 03/20/25 07:00
I&O
03/19/25 03/20/25 03/21/25
06:59 06:59 06:59
Intake Total 720 / 720 120 / 120
Output Total 500 / 500 325 / 325
Balance 220 / 220 -205 / -205
Review of Systems
-
History Source: Patient
Abdomen/GI: Reports Other (abdominal fullness, feeling impacted per pt )
Physical Exam
-
General: Well Developed, Well Nourished, No Apparent Distress, Comfortable, Conversant and Obese; Negative Respiratory Distress
HEENT: Normocephalic, Atraumatic, Nose Appears Normal and Ears Appear Normal; Negative Oxygen
Respiratory: Clear to Auscultation and Non Labored Respirations; Negative Accessory Resp Muscle Use
Cardiac: Regular Rhythm and S1/S2
GI: Soft, Nontender, Nondistended and Ostomy
Skin: Warm and Dry
Neuro: Awake and Alert
Psych: Calm and Intact Judgement/Insight (somewhat)
Data Reviewed
-
CT Scan: Report Reviewed by me
Labs: Labs Reviewed by me
[2025-03-20 10:57] LABS: Blood Urea Nitrogen 12 mg/dl (7-17); Calcium 8.9 mg/dl (8.4-10.2); Carbon Dioxide 27 mmol/L (22-30); Chloride 107 mmol/L (98-107); Estimated Creatinine Clearance 63 ml/min; Glucose 102 mg/dl (70-99); Magnesium 1.6 mg/dl (1.6-2.3); Potassium 3.7 mmol/L (3.5-5.1); Sodium 139 mmol/L (135-145); eGFR > 60.00
--- NOTE | 2025-03-20 11:32 | W.PN.GI.CBS2 ---
Addendum entered and electronically signed by Ravi Bergman DO 03/20/25 14:58:
I saw and examined the patient.
The TANK FARM GAUGER's note was reviewed and I agree with the note.
Comment: Called back by primary team on 02/2022 due to concern for rectal pressure and patient specifically requesting disimpaction under anesthesia. Patient reports previous outpatient disimpactions with her colorectal surgeon, Dr. Wyatt, where
she has undergone prior anesthesia with flex sigs (? - no records of this). Currently, she is declining a rectal exam and again wishes to undergo a disimpaction with her colorectal surgeon under anesthesia. Discussed that this would not be pursued
inpatient especially given her recent C Diff as well. Otherwise, denies any rectal pain, bloody stools or bright red blood per rectum and without evidence of anemia. She was reporting some gaseous discomfort and fortunately recent abdominal x-ray
was reassuring (personally reviewed) given her C. difficile and unremarkable for any evidence of colonic dilatation or other concern for toxic megacolon. Furthermore, she appears to be improving since oral vancomycin and without any further
darker/black stools from her ostomy along with a stable H/h. Would continue empiric oral vancomycin given her presentation despite her C. difficile PCR positive, negative antigen testing. Otherwise, she is tolerating a diet without any
nausea/vomiting or other concerning symptoms from a GI standpoint. Still with ongoing reported pain however this is a chronic issue secondary to her chronic pain syndrome and opioid dependence. I advised follow-up with her colorectal surgeon as an
outpatient. Rest of care as outlined below.
GI will sign off, please recontact with any questions or concerns.
Original Note:
Today's Communication / Plan
-
Asked to see for complaints of rectal pressure and requesting disimpaction under anesthesia
Etiology of rectal pressure unclear
per patient she will get this feeling and have follow up with colorectal-- Dr. Wyatt about 1 time per year for ? flex sig
reviewed X ray with patient some gaseous distention of stomach but no dilated loops, rectal not distended and normal range of stool in colon
I offered bedside rectal exam but pt declined
I will review imaging with Dr. Bergman
I advised pt to schedule follow up with Dr. Wyatt for outpatient eval
I will request Dr. Wyatt records to see what was completed in past
from prior GI bleed currently stools brown and liquid with stable hbg
Assessment / Plan
-
Assessment-
70-year-old female with PMHx significant for cerebral vasculitis, bilateral occipital CVA, chronic prednisone, complicated diverticulitis with abscess and colostomy, wound dehiscence resulting in permanent colostomy presents to the ER for evaluation
of abdominal pain and melanotic stools. Had CT abdomen is evidence that for colitis. GI is consulted for management of colitis and evaluation of the GI bleed. Advised to continue vanco and stop PPi. Asked to see again for rectal pressure.
03/20/25- abd X ray There is an ostomy projecting over the central pelvis, compatible with colostomy.No other significantly dilated air-filled loops of bowel are identified. The rectum does not appear to be distended.
The amount of stool within the visualized colon is probably within normal range. Correlating with prior CT scan, the stomach extends into the right lower quadrant, projecting over the lateral right upper pelvis and lower abdomen. Moderate gaseous
distention of the stomach.
Problem list-
# rectal pressure
# Colitis
# GI bleed
# Complicated diverticulitis with diverting colostomy
# History of wound dehiscence
# Permanent colostomy 8 years ago.
# History of obesity
# hyperlipidemia
# chronic steroid use
Plan
Asked to see for complaints of rectal pressure and requesting disimpaction under anesthesia
Etiology of rectal pressure unclear
per patient she will get this feeling and have follow up with colorectal-- Dr. Wyatt about 1 time per year for ? flex sig
reviewed X ray with patient some gaseous distention of stomach but no dilated loops, rectal not distended and normal range of stool in colon
I offered bedside rectal exam but pt declined
I will review imaging with Dr. Bergman
I advised pt to schedule follow up with Dr. Wyatt for outpatient eval as he has followed with her for some time
I will request Dr. Wyatt records to see what was completed in past
from prior GI bleed currently stools brown and liquid with stable hbg
Subjective
Subjective
Date of Service: March 20, 2025
asked to see again for feeling of rectal pressure with prior procedure with Dr. Wyatt
Objective
Data Reviewed
Laboratory Data:
Laboratory Results
03/20/25 09:19
03/20/25 09:19
Laboratory Results
Magnesium 1.6 mg/dl (1.6-2.3) 03/20/25 09:19
Total Bilirubin 0.5 mg/dl (0.2-1.3) 03/15/25 18:05
AST 22 U/L (14-36) 03/15/25 18:05
ALT 18 U/L (0-35) 03/15/25 18:05
Alkaline Phosphatase 71 U/L (38-126) 03/15/25 18:05
Vital Signs and I&O:
Vital Signs
Temp Pulse Resp BP Pulse Ox
98 F 82 16 107/56 97
03/20/25 07:00 03/20/25 07:00 03/20/25 07:00 03/20/25 07:00 03/20/25 07:00
I&O
03/19/25 03/20/25 03/21/25
06:59 06:59 06:59
Intake Total 720 / 720 120 / 120 240 / 240
Output Total 500 / 500 325 / 325
Balance 220 / 220 -205 / -205 240 / 240
Physical Exam
Physical Exam
HEENT: Anicteric and Moist mucous membranes
Cardiology: Normal Sinus Rhythm
Pulmonary: Clear
GI: Soft, Distended (minimal ), Non Tender and Other (ostomy with liquid brown stools)
Neuro: Non Focal
[2025-03-20 15:00] VITALS: BP 109/51
[2025-03-20] MEDS: TYLENOL 650 MG PO (16:52)
[2025-03-20] MEDS: ZOFRAN 4 MG IV (18:28)
[2025-03-20] MEDS: TOPAMAX 50 MG PO (21:19)
[2025-03-20] MEDS: CRESTOR 20 MG PO (21:19)
[2025-03-20] MEDS: LYRICA 100 MG PO (21:19)
[2025-03-20 23:00] VITALS: BP 103/55
[2025-03-21] MEDS: FIRVANQ 125 MG PO (05:06)
[2025-03-21 07:51] VITALS: BP 115/53
[2025-03-21] MEDS: ROXICODONE ORAL SOLUTION 10 MG PO ×2 (09:31→14:07)
[2025-03-21] MEDS: DETROL LA 2 MG PO (09:32)
[2025-03-21] MEDS: DELTASONE 4 MG PO (09:32)
[2025-03-21] MEDS: ABILIFY 2 MG PO (09:32)
[2025-03-21] MEDS: CYMBALTA DELAYED RELEASE 60 MG PO (09:32)
[2025-03-21] MEDS: TAMIFLU 75 MG PO (09:32)
[2025-03-21] MEDS: LYRICA 50 MG PO (09:32)
[2025-03-21] MEDS: NIZORAL 2% CREAM 1 APPLIC TOPICAL (09:36)
[2025-03-21] MEDS: DESENEX/MITRAZOL/ZEASORB 1 APPLIC TOPICAL (09:36)
--- NOTE | 2025-03-21 11:37 | W.PN.HOSP.TC ---
Addendum entered and electronically signed by Swathi Medel MD 03/21/25 11:58:
updated daughter on the phone
Original Note:
Today's Communication/Plan
-
dispo to SNF today
Assessment / Plan
Assessment / Plan
HPI: 70 y/o female with past medical history of cerebral vasculitis on chronic prednisone, bilateral occipital CVA, complicated diverticulitis with abscess requiring diverting colostomy, chronic abdominal pain and spinal stenosis; who presented with
abdominal pain and dark stool. Patient reported that her stools from the ostomy are chronically on the more liquids side, but since the day prior to arrival, the output form the ostomy is more black in color.
Patient also complained about increased left sided abdominal pain. She was recently started on cephalexin for right hand cellulitis.
CT AP:
Extensive postoperative changes within the abdomen with a colostomy in the lower midline abdomen. The residual distal colon appears to demonstrate mild wall thickening and mucosal hyperenhancement suggestive of colitis. There is no evidence of
obstruction.
Postoperative changes in the anterior abdominal wall with a hernia involving the right lateral abdominal wall containing non-obstructed bowel and stomach.
Age-indeterminate mild anterior compression deformity of the L4 vertebral body. If there is clinical suspicion for an acute fracture evaluation with dedicated MRI may be considered.
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
4.6 mm nonobstructing stone in the interpole of the left kidney.
A/P:
# GI symptoms with colitis noted on imaging with associated abdominal pain
# Chronic colostomy
Norovirus negative, stool cultures negative
C. difficile antigen positive, toxin negative (noted patient was recently on antibiotics)
Continue P.O. Vancomycin, treat for an empiric 14-day course
Monitor colostomy output
Advanced diet to low residue and pt tolerated well
Stopped PPI as no concern for gastrointestinal bleeding and PPI would increase patient's risk for recurrent C. Diff in the future.
Appreciate GI input
# Abdominal fullness, feeling impacted per pt
Pt states she usually need disimpaction by CRS under anesthesia
pt declined bowel regimen
AXR showed the amount of stool within the visualized colon is probably within normal range.
appreciate GI input, recc outpt follow up with previous CRS for disimpaction
# Resp symptoms with mild cough/congestion 2/2 flu
Continue Tamiflu x5 days
# Cerebral Vasculitis
Continue prednisone
# Chronic Pain Syndrome with Opioid Dependence due to chronic abdominal pain following multiple surgeries and spinal stenosis
Continue duloxetine and pregabalin
Continue [employer] oxycodone PRN
# Hyperlipidemia
Continue Crestor
# Unspecified depression and complicated bereavement
Appreciate psychiatry: patient is quite depressed and needs a lot of support; changing patient's medications right now would not really provide any relief in the near future
Cont current Ability and duloxetine
Outpatient supportive psychotherapy
TSH WNL at 1.29, Vitamin B12 and Folate levels WNL
DVT proph: Lovenox SQ
Code Status: Full Code
Dispo: SNF
DW RN
Anticipated Discharge: Today
Subjective/Interval History
-
Date of Service: March 21, 2025
Objective Data
-
Vital Signs:
Vital Signs
Temp Pulse Resp BP Pulse Ox
36.7 C 69 18 115/53 96
03/21/25 07:51 03/21/25 07:51 03/21/25 07:51 03/21/25 07:51 03/21/25 07:51
I&O
03/20/25 03/21/25 03/22/25
06:59 06:59 06:59
Intake Total 120 / 120 360 / 360
Output Total 325 / 325 50 / 50 225 / 225
Balance -205 / -205 310 / 310 -225 / -225
Review of Systems
-
History Source: Patient
All other systems: Reviewed and negative
Physical Exam
-
General: Well Developed, Well Nourished, No Apparent Distress, Comfortable, Conversant and Obese; Negative Respiratory Distress
HEENT: Normocephalic, Atraumatic, Nose Appears Normal and Ears Appear Normal; Negative Oxygen
Respiratory: Clear to Auscultation and Non Labored Respirations; Negative Accessory Resp Muscle Use
Cardiac: Regular Rhythm and S1/S2
GI: Soft, Nontender, Nondistended and Ostomy
Skin: Warm and Dry
Neuro: Awake and Alert
Psych: Calm and Intact Judgement/Insight (somewhat)
Data Reviewed
-
CT Scan: Report Reviewed by me
Labs: Labs Reviewed by me
--- NOTE | 2025-03-21 12:41 | CM ---
Chart reviewed. Ready for dc
Spoke with Charlene at [facility] admission
IMM reviewed with pt
Ambulance transport at 2 pm set up
--- NOTE | 2025-03-21 14:08 | W.DCSUMMARY ---
Discharge Summary
Discharge Data
Date of Admission: 03/18/25
Date of Discharge: 03/21/25
Total time spent discharging patient (in min): 40
-
Pending Results: No
Hospital Course
Principal Diagnosis:
# GI symptoms with colitis noted on imaging due to C diff colitis
# Resp symptoms with mild cough/congestion due to influenza A infection
Chronic Diagnoses:�
# Chronic colostomy
# Cerebral Vasculitis, Continue prednisone
# Chronic Pain Syndrome with Opioid Dependence due to chronic abdominal pain following multiple surgeries and spinal stenosis. Continue duloxetine and pregabalin. Continue [employer] oxycodone PRN
# Hyperlipidemia. Continue Crestor
# Unspecified depression and complicated bereavement. Continue Ability and duloxetine
Consultations:�
Gastroenterology
Psychiatry
Procedures:�
None
Clinical course:�
This is a 70 y/o female with past medical history of cerebral vasculitis on chronic prednisone, bilateral occipital CVA, complicated diverticulitis with abscess requiring diverting colostomy, chronic abdominal pain and spinal stenosis; who presented
with abdominal pain and dark stool. Patient reported that her stools from the ostomy are chronically on the more liquids side, but since the day prior to arrival, the output form the ostomy is more black in color.
Patient also complained about increased left sided abdominal pain. She was recently started on cephalexin for right hand cellulitis.
CT AP:
Extensive postoperative changes within the abdomen with a colostomy in the lower midline abdomen. The residual distal colon appears to demonstrate mild wall thickening and mucosal hyperenhancement suggestive of colitis. There is no evidence of
obstruction.
Postoperative changes in the anterior abdominal wall with a hernia involving the right lateral abdominal wall containing non-obstructed bowel and stomach.
Age-indeterminate mild anterior compression deformity of the L4 vertebral body. If there is clinical suspicion for an acute fracture evaluation with dedicated MRI may be considered.
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
4.6 mm nonobstructing stone in the interpole of the left kidney.
Problem 1:
GI symptoms with colitis noted on imaging due to C diff colitis.
Her C. difficile antigen wa positive, toxin negative (noted patient was recently on antibiotic).
She was started with P.O. Vancomycin, and plan to treat for an empiric 14-day course (she was discharged with oral vancomycin for 9 more days to complete the course).
Her diet was advanced to low residue which she tolerated well.
Her prior to admission Protonix was discontinued given it can increase the patient's risk for recurrent C. difficile colitis.
Problem 2:
Resp symptoms with mild cough/congestion due to influenza A infection.
Treat with Tamiflu x5 days.
As for the rest of her medical problems, they were stable during her hospital stay.
Discharge Plan
-
Patient Disposition: Custodial/SNF
Discharge Diagnosis/Procedures: GI symptoms with colitis noted on imaging likely due to C. difficile infection (antigen positive, toxin negative);
Respiratory symptoms with mild cough/congestion due to Influenza infection
Condition: Fair
Diet: As tolerated
Activity: As tolerated
Driving Restrictions: As prior to admission
Wound Care: Wound Care Instructions
Abdominal/groin folds-clean with body cleanser/wipe and dry skin, apply miconazole powder, apply zinc barrier ointment to open areas (i.e. Calazime) bid. Tuck non woven gauze or ABD Pad lower abdominal skin fold and change daily and as needed for
moisture.
Miconazole powder to perianal skin twice a day. Zinc barrier ointment (i.e. Calazime ointment) twice a day as needed to perianal skin.
Nizoral cream to foot/toe rash twice a day x 10 days.
Moisture cream to dry skin daily and as needed for dry skin.
Elevate heels off bed with pillow/s
Pressure redistributing chair cushion (i.e. Bariatric air chair cushion).
Make appointment with envelope machine operator for toenail care.
Follow up with GI doctor.
Referrals:
Jc Kim MD [Active, Gastroenterology] - in six weeks
Referral Note: Call to make an appointment in 6-8 weeks
UNKNOWN - PT NOT,INTERVIEWE [Family Provider] - in less than 1 week
Additional Discharge Medication Instructions: Continue vancomycin for 9 more days
Continue Tamiflu for 1 more dose (03/21 evening)
Stop Protonix (as it can increase risk of C diff infection)
Prescriptions:
New
oseltamivir 75 mg Capsule
75 mg PO ONCE Qty: 1 0RF
Rx Instructions:
one more dose 03/21 at 7 pm
vancomycin 125 mg capsule
125 mg PO QID Qty: 38 0RF
Continued
prednisone 1 mg Tablet
4 mg PO DAILY
rosuvastatin [Crestor] 20 mg Tablet
20 mg PO HS
topiramate 50 mg Tablet
50 mg PO HS
duloxetine 60 mg Capsule,Delayed Release(Dr/Ec)
60 mg PO BID
solifenacin [Vesicare] 5 mg Tablet
5 mg PO DAILY
pregabalin [Lyrica] 50 mg Capsule
50 mg PO BID@0800,1700
pregabalin [Lyrica] 50 mg Capsule
100 mg PO HS
aripiprazole [Abilify] 2 mg Tablet
2 mg PO DAILY
oxycodone 5 mg/5 mL Solution
10 mg PO Q8HPRN PRN (Reason: severe pains) Qty: 15 0RF
Discontinued
cephalexin 500 mg Capsule
500 mg PO Q8H
Rx Instructions:
for 7 days starting 03/11/25
pantoprazole [Protonix] 40 mg Tablet,Delayed Release (Dr/Ec)
40 mg PO DAILY
Discharge Orders:
Discharge Patient (As Directed); Ordered 03/21/25
Ordered By: Swathi Medel
Discharge Date and Time
Print Language: NIUEAN
[2025-03-21 14:13] VITALS: BP 125/60
--- NOTE | 2025-03-21 14:36 | PTCARENOTE ---
Ambulance company told pt she cannot bring her rollater on the ambulance. Pt's family member due to come in and fruit or nut picker the walker.
--- NOTE | 2025-03-21 15:12 | PTCARENOTE ---
Brother in law came to fiber picker walker
== END 2025-03-21 14:36 | DRG 372 ==
LOC: 1 ACUTE 15:51
PROVIDERS: Hospitalist; Physician Assistant; Physician Assistant Medical; ADMITTING PHYSICIAN Hospitalist; ATTENDING PHYSICIAN Internal Medicine; CONSULT PHYSICIAN Psychiatry & Neurology Psychiatry; CONSULT PHYSICIAN Specialist; EMERGENCY PHYSICIAN Emergency Medicine
DX: A04.72 Enterocolitis due to Clostridium difficile, not specified as recurrent (principal); D84.821 Immunodeficiency due to drugs; L03.113 Cellulitis of right upper limb; F11.20 Opioid dependence, uncomplicated; Z93.3 Colostomy status; I77.6 Arteritis, unspecified; G89.4 Chronic pain syndrome; Z87.891 Personal history of nicotine dependence; Z79.52 Long term (current) use of systemic steroids; F32.A Depression, unspecified; F43.81 Prolonged grief disorder; J10.1 Influenza due to other identified influenza virus with other respiratory manifestations; Z79.60 Long term (current) use of unspecified immunomodulators and immunosuppressants; Z79.899 Other long term (current) drug therapy; Z11.52 Encounter for screening for COVID-19
CPT/HCPCS: 74018; 74177; 80048; 80053; 82607; 82746; 83605; 83735; 84443; 85014; 85018; 85025; 85027; 86850; 86900; 86901; 87045; 87046; 87324; 87427; 87449; 87502; 87798; 87811; 97116; 97162; 97530; 99406; Q9967